=== PATIENT | female | born 1960 | race Caucasian/White ===

== ENCOUNTER 2017-10-25 13:23 | Day surgery (SDC) | payer OTHER ==
[~2017-10-25 13:23] MED LIST: Acetaminophen/HYDROcodone 325-5 MG Tab PO PRN; Clindamycin Phosphate in D5W 900 MG in Premix Bag 1 BAG IV SCH; Lactated Ringers 1,000 ML IV SCH
--- NOTE | 2017-10-25 13:54 | PCM.PREANE ---
Preanesthetic Assessment - Anesthesia/Transfusion/Family Hx Anesthesia History: Prior Anesthesia Without Reaction Family History of Anesthesia Reaction: No Transfusion History: No Prior Transfusion(s) - Review of Systems General: No Symptoms Pulmonary: No Symptoms Cardiovascular: No Symptoms Gastrointestinal: No Symptoms Neurological: No Symptoms Other: Reports: None - Physical Assessment NPO Status Date: 10/24/17 Height: 1.73 m Weight: 95.254 kg ASA Class: 2 Mental Status: Alert & Oriented x3 Airway Class: Mallampati = 1 Dentition: Reports: Normal Dentition ROM/Head Extension: Full Lungs: Clear to Auscultation, Normal Respiratory Effort Cardiovascular: Regular Rate, Regular Rhythm - Allergies Allergies/Adverse Reactions: Allergies Allergy/AdvReac Type Severity Reaction Status Date / Time amoxicillin Allergy Rash Verified 10/20/17 09:04 - Anesthesia Plan Pre-Op Medication Ordered: None - Acknowledgements Anesthesia Type Planned: General Anesthesia Pt an Appropriate Candidate for the Planned Anesthesia: Yes Alternatives and Risks of Anesthesia Discussed w Pt/Guardian: Yes Pt/Guardian Understands and Agrees with Anesthesia Plan: Yes PreAnesthesia Questionnaire HEENT History: Reports: Hard of Hearing, Other (See Below) Other HEENT History: wears glasses, has lower permanent dental bridge Cardiovascular History: Reports: Hypertension Gastrointestinal History: Reports: GERD, Hiatal Hernia Musculoskeletal History: Reports: Fracture Other Musculoskeletal History: spiral fx of right tibia Psychiatric History: Reports: Anxiety, Depression Endocrine/Metabolic History: Reports: Obesity/BMI 30+ - Past Surgical History Head Surgeries/Procedures: Reports: None Female Surgical History: Reports: Hysterectomy Musculoskeletal Surgical History: Reports: ORIF Other Musculoskeletal Surgeries/Procedures:: ORIF right tibia (has hardware) - SUBSTANCE USE Smoking Status *Q: Never Smoker Recreational Drug Use History: No - HOME MEDS Home Medications: Home Meds Desvenlafaxine Succinate [Desvenlafaxine Succinate ER] 50 mg PO DAILY 10/20/17 [ History] Diclofenac Sodium [Voltaren] 75 mg PO BID 10/20/17 [History] Hydrochlorothiazide 25 mg PO DAILY 10/20/17 [History] traMADol HCl [Ultram] 50 mg PO ASDIRECTED PRN 10/20/17 [History] Acetaminophen/HYDROcodone [Grant 325-5 MG] 1 - 2 tab PO Q4H PRN #80 tablet 10/25 [Rx] - CURRENT (IN HOUSE) MEDS Current Meds: Current Medications Hydrocodone Bitart/Acetaminophen (Grant 325-5 Mg) 1 - 2 tab PO Q4H PRN PRN Reason: Pain Clindamycin Phosphate 900 mg/ (Premix) 50 mls @ 100 mls/hr IV ONCALL BRENDEN Lactated Ringer's (Ringers, Lactated) 1,000 mls @ 100 mls/hr IV ASDIRECTED BRENDEN
[2017-10-25] MEDS ORDERED: Dexamethasone 4 MG/ML 5 ML MDV ONE (14:19)
[2017-10-25] MEDS ORDERED: Ondansetron 4 MG/2 ML SDV ONE (14:19)
[2017-10-25] MEDS ORDERED: Midazolam 1 MG/ML 2 ML SDV ONE (14:20)
[2017-10-25] MEDS ORDERED: Lidocaine 2% 5 ML SDV ONE (14:20)
[2017-10-25] MEDS ORDERED: fentaNYL 100 MCG/2 ML SDV ONE ×2 (14:20→16:01)
[2017-10-25] MEDS ORDERED: Propofol 200 MG/20 ML SDV ONE (14:20)
[2017-10-25] MEDS ORDERED: Lidocaine 1% 20 ML MDV ONE (15:18)
[2017-10-25] MEDS ORDERED: ceFAZolin/Dextrose,Iso-Osmotic 2 GM/50 ML Duplex Bag IV ONE (15:45)
[2017-10-25] MEDS ORDERED: HYDROmorphone 2 MG/ML SDV ONE (16:11)
--- NOTE | 2017-10-25 16:36 | PCM.OPNOTE ---
- General Post-Op/Procedure Note Date of Surgery/Procedure: 10/25/17 Operative Procedure(s): L knee scope with PLM/PMM Post-Op Diagnosis: Djd left knee, L knee med/lat meniscus tear Anesthesia Technique: General LMA Primary Surgeon: Barbara Prater [employer] Report Developer: Peggy Edward in mLs: 5 Condition: Good Free Text/Narrative:: tt=20 min #[id number]
--- NOTE | 2017-10-25 17:06 | PCM.POSTAN ---
POST ANESTHESIA ASSESSMENT - MENTAL STATUS Mental Status: Alert, Oriented - RESPIRATORY Respiratory Status: Respiratory Rate WNL, Airway Patent, O2 Saturation Stable - CARDIOVASCULAR CV Status: Pulse Rate WNL, Blood Pressure Stable - GASTROINTESTINAL GI Status: No Symptoms - PAIN Pain Score: 0 - POST OP HYDRATION Hydration Status: Adequate & Stable
--- NOTE | 2017-10-25 17:27 | PCM48HPAN ---
Post Anesthesia Note - EVALUATION WITHIN 48HRS OF ANESTHETIC Vital Signs in Normal Range: Yes Patient Participated in Evaluation: Yes Respiratory Function Stable: Yes Airway Patent: Yes Cardiovascular Function Stable: Yes Hydration Status Stable: Yes Pain Control Satisfactory: Yes Nausea and Vomiting Control Satisfactory: Yes Mental Status Recovered: Yes Resp Rate: 16
--- NOTE | 2017-10-25 22:19 | OR ---
SURGEON: Barbara Prater MD DATE OF PROCEDURE: 10/25/2017 PREOPERATIVE DIAGNOSIS: Left knee medial meniscus tear. POSTOPERATIVE DIAGNOSES: 1. Left knee medial meniscus tear. 2. Left knee lateral meniscus tear. 3. Degenerative joint disease, left knee. PROCEDURE: Left knee arthroscopy with partial medial and lateral meniscectomy. RFID STRATEGIST: Peggy Edward RN. ANESTHESIA: General. ESTIMATED BLOOD LOSS: 5 mL. TOURNIQUET TIME: 20 minutes. COMPLICATIONS: None. DVT PROPHYLAXIS: None indicated. IMPLANTS USED: None. BRIEF HISTORY: Brea is a 57-year-old female who has had complaint of progressive left knee pain. An MRI did show a tear of the medial meniscus. Due to her lack of response to conservative treatment, I did recommend surgical intervention. The risks and goals of the procedure were discussed with the patient and were documented preoperatively. She agreed to proceed. DESCRIPTION OF PROCEDURE: The patient was properly identified and brought to the operating room. She was transferred from the OR cart and placed on the operating table in supine position. General anesthesia was administered. After adequate anesthesia was obtained, a well-padded tourniquet was applied to the left lower extremity. The left lower extremity was then prepped in standard fashion using ChloraPrep solution. It was then sterilely draped. A time-out was performed to ensure correct site and procedure. Preoperative antibiotics were given. The surgical site had been marked preoperatively. An Esmarch was used to exsanguinate the left lower extremity, and the tourniquet was inflated to 250 mmHg. A lateral portal arthrotomy was established. Blunt trocar and cannula were introduced into the suprapatellar pouch. Camera, inflow, and outflow were assembled. No significant synovitis was noted. The patellofemoral joint was visualized. The patella showed diffuse grade 2 chondromalacia. There was an area of grade 4 chondromalacia along the central portion of the superior trochlear groove. The patella appeared to track centrally. I then extended down the lateral and medial gutter. No loose bodies were identified. I then entered the medial compartment. A medial portal arthrotomy was established. A blunt probe was inserted. She was found to have a large complex tear of the posterior horn of the medial meniscus which was unstable. Using a combination of biters and shaver, this was resected back to a stable remnant. It was again probed, and the remainder of the meniscus was found to be stable. She had an area measuring approximately 20 mm x 20 mm over the weightbearing aspect of the medial tibial plateau that did show grade 4 chondromalacia. The remainder of the tibial plateau showed grade 3 chondromalacia. Diffuse grade 3- 4 chondromalacia was also noted along the medial femoral condyle. I then entered the notch. Both the ACL and PCL were visualized and probed and found to be intact. I then entered the lateral compartment. A large fissure was noted along the medial portion of the lateral tibial plateau. This was probed and found to be unstable. A shaver was used to perform a chondroplasty of this area. The remaining defect measured approximately 5 mm x 5 mm. The surrounding cartilage appeared stable. The meniscus showed degenerative fraying along the central portion of the lateral meniscus. This was resected with a combination of biters and shaver. The meniscus was again probed and found to be stable. Diffuse grade 2 chondromalacia was noted along the lateral femoral condyle. I then re-entered the patellofemoral joint. The trochlear degenerative findings were probed. No loose cartilage was identified. Instruments were then removed from the knee. The portal sites were closed with 3-0 nylon. Lidocaine 1% was injected along the portal tracts. Xeroform gauze was placed over the wound, and a bulky dressing was applied. The tourniquet was then deflated. She was awakened from her anesthetic and transferred back to the operating room cart. She was brought to recovery room in stable condition. All needle and sponge counts were correct. JOSEPHINE / PEDRITO /[id number]
== END 2017-10-25 18:00 | disposition home or self-care (01) ==
LOC: MW.SDS 13:23
PROVIDERS: ATTEND Orthopaedic Surgery
DX: M23.222 Derangement of posterior horn of medial meniscus due to old tear or injury, left knee (principal); M23.262 Derangement of other lateral meniscus due to old tear or injury, left knee; M17.12 Unilateral primary osteoarthritis, left knee; I10 Essential (primary) hypertension; F41.8 Other specified anxiety disorders; Z79.899 Other long term (current) drug therapy; Z88.1 Allergy status to other antibiotic agents
CPT/HCPCS: 29880; J0690; J1100; J1170; J2250; J2405; J3010; J7120; 01400; 88304; J2704